=== PATIENT | male | born 2000 | race Caucasian/White ===

== ENCOUNTER → 2021-01-27 | Outpatient (CLI) | payer BC ==
--- NOTE | 2021-01-28 01:53 | RAD ---
INDICATION: Left testicular lump COMPARISON: None. TECHNIQUE: Grayscale, color and spectral doppler ultrasound images obtained of the scrotum. FINDINGS: Right Testicle: 46 x 30 x 18 mm. Vascular flow is identified. Left Testicle: 44 x 29 x 16 mm. Vascular flow is identified. 3 mm right epididymal cyst IMPRESSION: * Vascular flow is identified to the bilateral testicles. No worrisome testicular mass. Electronically signed by: Neil Maier MD (01/28/2021 1:50 AM) [id number]
--- NOTE | 2021-01-28 08:42 | RAD ---
CT LUMBAR SPINE WO Date: 01/27/2021 1:05 PM Indication: SPONDYLOLYSIS OF LUMBAR REGION Comparison: None. Technique: Helical CT images of the lumbar spine were obtained without contrast. Coronal and sagitta l reformatted images were also performed. One or more of the following dose reduction techniques were utilized: Automated exposure control (AEC), Adjustment of mA and/or kV according to patient size, Us e of iterative reconstruction technique such as ASiR, CT scan done according to ALARA and image gentl y/image wisely. Findings: Postsurgical changes of bilateral transpedicular fixation at L5. Surgical hardware is intact. No cameron screw lucency. 2 mm anterolisthesis at L5-S1. No acute fracture. Vertebral body heights are maintained without compression deformity. The intervert ebral disc spaces are normal. No aggressive lytic or blastic osseous lesion. No significant spinal canal stenosis or neuroforaminal narrowing. No soft tissue abnormality within the visualized abdomen or pelvis. The visualized abdominal aorta is normal caliber. IMPRESSION: Posterior fixation at L5 with intact surgical hardware. Electronically signed by: Ladarius Pascual MD (01/28/2021 8:40 AM) BRUNILDA
== END ==
LOC: US 12:49
PROVIDERS: ATTEND Nurse Practitioner Gerontology
DX: N50.89 Other specified disorders of the male genital organs (principal); N50.3 Cyst of epididymis; M47.816 Spondylosis without myelopathy or radiculopathy, lumbar region
CPT/HCPCS: 72131; 76870